=== PATIENT | female | born 1965 | race Caucasian/White ===

== ENCOUNTER → 2016-10-02 | Outpatient (CLI) | payer MEDICARE, MEDICAID ==
[~2016-10-02] MED LIST: DOXY-216 PO; FOLI1TAB6; IBUP800T24; LEVO500T21 PO; METH2.5T3 SC; PRE5T; RIT50I; SACC250C PO
[2016-10-02 09:58] LABS: Basophils # (auto) 0 uL; CONDITION Y; Eosinophils # (auto) 0.1 uL; Eosinophils % (auto) 1.1 % (0.0-7.0); Hematocrit 38.7 % (36.0-46.0); Hemoglobin 12.8 g/dL (12.2-16.2); Lymphocytes # (auto) 0.2 uL; Lymphocytes % (auto) 3.7 % (10.0-50.0); Mean Corpuscular Volume 88.1 fL (80.0-100.0); Mean Platelet Volume 7.9 fL (7.4-10.4); Monocytes # (auto) 0.2 uL; Monocytes % (auto) 4.2 % (0.0-12.0); Neutrophils # (auto) 5.2 uL; Platelet Count (auto) 246 10^3/uL (140-450); Red Cell Distribution Width 18.3 % (11.6-16.0); White Blood Cell 5.7 10^3/uL (4.4-10.8)
[2016-10-02 10:20] LABS: Albumin 3.8 g/dL (3.4-5.0); BUN/Creatinine Ratio 20.5; Bilirubin, Total 0.7 mg/dL (0.2-1.0); Calcium 8.7 mg/dL (8.5-10.1); Potassium 3.7 mmol/L (3.5-5.1); Total Protein 6.7 g/dL (6.4-8.2)
[2016-10-03 05:07] LABS: Rheumatoid Arthritis Factor <10.0 IU/mL (0.0-13.9)
[2016-10-03 10:07] LABS: Hepatitis B Surface Antibody Negative
== END | disposition home or self-care (01) ==
LOC: LAB 09:27
DX: Z12.11 Encounter for screening for malignant neoplasm of colon (principal); D64.9 Anemia, unspecified; M25.50 Pain in unspecified joint; M06.9 Rheumatoid arthritis, unspecified; K75.9 Inflammatory liver disease, unspecified; I10 Essential (primary) hypertension; A15.0 Tuberculosis of lung; Z79.899 Other long term (current) drug therapy
CPT/HCPCS: 36415; 80053; 80074; 85025; 85652; 86141; 86704; 86706

== ENCOUNTER 2017-05-08 08:32 | Inpatient (IN) | payer MEDICARE, MEDICAID ==
[~2017-05-08] VITALS: Ht 177.8 cm; Wt 96.0 kg
[2017-05-08] VITALS (33 sets, daily range): BP systolic 83–149; BP diastolic 43–98
[~2017-05-08 08:32] MED LIST changes: -DOXY-216 PO; -FOLI1TAB6; +FOLI1TAB6 PO; -IBUP800T24; +IBUP800T24 PO; -LEVO500T21 PO; -PRE5T; +PRE5T PO; -RIT50I; -SACC250C PO; +TOCI80IN IV
[2017-05-08] MEDS ORDERED: SODIUM CHLORIDE 0.9% 2,000 ML IV ONE (09:30)
[2017-05-08] MEDS ORDERED: ONDANSETRON HCL 4 MG/2 ML VIAL IV ONE (09:30)
[2017-05-08] MEDS ORDERED: MORPHINE SULFATE 10 MG/ML INJ 1ML SDV IV ONE (09:30)
[2017-05-08 10:00] LABS: Basophils # (auto) 0 uL; Basophils % (auto) 0.3 % (0.0-2.0); Eosinophils # (auto) 0.1 uL; Eosinophils % (auto) 0.9 % (0.0-7.0); Hematocrit 42.3 % (36.0-46.0); Lymphocytes # (auto) 0.4 uL; Lymphocytes % (auto) 6.4 % (10.0-50.0); Mean Corpuscular Hemoglobin 30.3 pg (28.0-32.0); Mean Corpuscular Hgb Conc. 33.1 g/dL (32.0-36.0); Mean Corpuscular Volume 91.6 fL (80.0-100.0); Monocytes # (auto) 0.3 uL; Monocytes % (auto) 4.2 % (0.0-12.0); Neutrophils # (auto) 5.5 uL; Neutrophils % (auto) 88.2 % (37.0-80.0); Nucleated Red Blood Cells % 0.2 %; Platelet Count (auto) 184 10^3/uL (140-450); Red Blood Cells 4.62 10^6/uL (4.0-5.20); Red Cell Distribution Width 15.2 % (11.8-14.3); White Blood Cell 6.2 10^3/uL (4.4-10.8)
[2017-05-08] MEDS ORDERED: MORPHINE SULFATE 4 MG/ML SYR/VIAL IV ONE (10:15)
[2017-05-08 10:20] LABS: INR 1.02 (0.9-1.15); Partial Thromboplastin Time 18.7 sec (22.64-33.71); Prothrombin Time 11.1 sec (9.37-12.3)
[2017-05-08 10:21] LABS: Lactic Acid w/Reflex 2.7 mmol/L (0.4-2.0)
[2017-05-08 10:27] LABS: Albumin 3.1 g/dL (3.4-5.0); BUN/Creatinine Ratio 17.9; Bilirubin, Total 0.9 mg/dL (0.2-1.0); Calcium 8.7 mg/dL (8.5-10.1); Magnesium 1.6 mg/dL (1.6-2.6); Potassium 3.3 mmol/L (3.5-5.1); Total Protein 6.1 g/dL (6.4-8.2)
[2017-05-08] MEDS: SODIUM CHLORIDE 0.9% 1,000 ML IV ONE ×2 (11:30→12:00)
[2017-05-08] MEDS ORDERED: AZITHROMYCIN 500MG/ 250ML 250 ML IV ONE (11:45)
[2017-05-08] MEDS ORDERED: AZTREONAM 1GM INJ 1 GM in D5W 5% 50 ML IV ONE (11:45)
[2017-05-08] MEDS ORDERED: SODIUM CHLORIDE 0.9% 1,000 ML IV ONE ×2 (12:00→13:45)
[2017-05-08] MEDS: MIDAZOLAM DRIP 50 mg/50mL 50 ML IV SCH ×2 (13:05→18:38)
[2017-05-08] MEDS ORDERED: MIDAZOLAM HCL 5 MG/ML-1ML VIAL ONE (13:15)
[2017-05-08] MEDS ORDERED: ETOMIDATE (2MG/ML) 20ML VIAL IV ONE ×2 (13:16→13:30)
[2017-05-08] MEDS ORDERED: KETAMINE HCL 1 ML ONE (13:18)
[2017-05-08] MEDS ORDERED: SUCCINYLCHOLINE CHLORIDE 20 MG/ML 10ML VIAL IV ONE ×2 (13:22→13:30)
[2017-05-08] MEDS: SODIUM CHLORIDE 0.9% 1,000 ML IV SCH ×2 (13:25→18:34)
[2017-05-08] MEDS: NOREPINEPHRINE 8 MG/250ML KIT 250 ML IV SCH (13:30)
[2017-05-08] MEDS ORDERED: MIDAZOLAM HCL 5 MG/ML-1ML VIAL IV ONE ×2 (13:30→13:45)
[2017-05-08] MEDS ORDERED: PIPERACILLIN-TAZOB 3.375GM 50 ML IV ONE (13:45)
[2017-05-08] MEDS ORDERED: ALBUTEROL SULF 2.5 MG/0.5ML(0.5%) NEB SOLN NEB PRN (13:45)
[2017-05-08] MEDS ORDERED: MORPHINE SULFATE 4 MG/ML SYR/VIAL IV PRN ×3 (13:45)
[2017-05-08] MEDS ORDERED: LORazepam 2MG/ML-1ML VIAL IV PRN (13:45)
[2017-05-08] MEDS ORDERED: VANCOMYCIN 1GM/250ML 250 ML IV ONE (13:45)
[2017-05-08] MEDS ORDERED: OSELTAMIVIR 75MG/5ML ORAL SUSP GT ONE (13:45)
[2017-05-08] MEDS ORDERED: PROMETHAZINE HCL 25 MG/ML 1ML IV PRN (13:45)
[2017-05-08] MEDS ORDERED: NITROGLYCERIN 0.4 MG SL TAB SL PRN (13:45)
[2017-05-08] MEDS ORDERED: VANCOMYCIN PER PHARMACY 0 MG IV SCH (13:45)
[2017-05-08] MEDS: fentaNYL Drip 2500mCg/250mlNS 250 ML IV SCH ×2 (14:00→16:11)
[2017-05-08 14:50] LABS: Albumin 3.1 g/dL (3.4-5.0); BUN/Creatinine Ratio 13.1; Bilirubin, Total 0.9 mg/dL (0.2-1.0); Calcium 7.8 mg/dL (8.5-10.1); Potassium 3.5 mmol/L (3.5-5.1); Total Protein 6.4 g/dL (6.4-8.2)
[2017-05-08] MEDS ORDERED: VANCOMYCIN 1,500 MG in D5W 5% 250 ML IV SCH (15:00)
[2017-05-08] MEDS ORDERED: FOLI1TAB6 PO (16:33)
[2017-05-08] MEDS ORDERED: PRE5T GT ×2 (16:35→16:42)
[2017-05-08] MEDS ORDERED: METO25TA5 PO (16:36)
[2017-05-08] MEDS ORDERED: IBUP800T24 PO (16:37)
[2017-05-08] MEDS ORDERED: SACC250C PO (16:42)
[2017-05-08] MEDS: POTASSIUM CHL 20MEQ/100ML 100 ML IV SCH ×2 (17:00→19:00)
[2017-05-08] MEDS ORDERED: POTASSIUM CHL 10% (20 MEQ/15ML) 15ml ORAL SOLN ONE ×2 (17:20→18:40)
[2017-05-08] MEDS: PIPERACILLIN-TAZOB 3.375GM 50 ML IV SCH (18:00)
[2017-05-08] MEDS: ALBUTEROL SULF 2.5 MG/0.5ML(0.5%) NEB SOLN NEB SCH (18:00)
[2017-05-08] MEDS ORDERED: FUROSEMIDE 20 MG/2 ML VIAL ONE (19:02)
[2017-05-08] MEDS ORDERED: FUROSEMIDE 40 MG/4 ML VIAL ONE (19:02)
[2017-05-08] MEDS ORDERED: ALBUMIN 5% 250 ML IV ONE (21:45)
[2017-05-08] MEDS ORDERED: VASOPRESSIN 50 UNITS in D5W 5% 247.5 ML IV SCH (22:00)
[2017-05-08] MEDS ORDERED: OSELTAMIVIR 75MG/5ML ORAL SUSP GT SCH (22:00)
[2017-05-08] MEDS ORDERED: FUROSEMIDE 40 MG/4 ML VIAL IV ONE (22:00)
[2017-05-08] MEDS ORDERED: SODIUM BICARBONATE 8.4 % INJ 50ML VIAL IV ONE ×2 (22:00→22:10)
[2017-05-08] MEDS ORDERED: SODIUM BICARBONATE 8.4 % INJ 50ML VIAL IV SCH (22:00)
[2017-05-08] MEDS ORDERED: ALBUMIN 25% 50 ML IV ONE (22:00)
[2017-05-08] MEDS ORDERED: ALBUMIN 5% 500 ML IV ONE (22:20)
[2017-05-08] MEDS ORDERED: ALBUMIN 25% 100 ML IV ONE (22:21)
[2017-05-08] MEDS ORDERED: VASOPRESSIN 20 UNIT/ML ONE (22:22)
[2017-05-08] MEDS ORDERED: SODIUM BICARBONATE 50ML VIAL 100 ML in D5W/SOD CHL 0.45% 1,000 ML IV SCH (22:30)
[2017-05-09] VITALS (10 sets, daily range): BP systolic 51–153; BP diastolic 25–96
[2017-05-09] MEDS ORDERED: SODIUM BICARBONATE 8.4% INJ 50ML SYRINGE ONE ×2 (01:03→04:41)
[2017-05-09] MEDS ORDERED: SODIUM BICARBONATE 8.4 % INJ 50ML VIAL IV ONE ×3 (01:04→04:30)
[2017-05-09] MEDS: ALBUTEROL SULF 2.5 MG/0.5ML(0.5%) NEB SOLN NEB SCH ×2 (01:12→06:22)
[2017-05-09] MEDS ORDERED: SODIUM BICARBONATE 8.4 % INJ 50ML VIAL IV SCH (01:15)
[2017-05-09 01:18] LABS: Basophils # (auto) 0 uL; Basophils % (auto) 0.2 % (0.0-2.0); Eosinophils # (auto) 0.2 uL; Eosinophils % (auto) 2.5 % (0.0-7.0); Hematocrit 39.9 % (36.0-46.0); Hemoglobin 12.5 g/dL (12.2-16.2); Lymphocytes # (auto) 1.2 uL; Lymphocytes % (auto) 19.5 % (10.0-50.0); Mean Corpuscular Hemoglobin 30.5 pg (28.0-32.0); Mean Corpuscular Hgb Conc. 31.3 g/dL (32.0-36.0); Mean Corpuscular Volume 97.4 fL (80.0-100.0); Monocytes # (auto) 0.1 uL; Monocytes % (auto) 1.6 % (0.0-12.0); Neutrophils # (auto) 4.7 uL; Neutrophils % (auto) 76.2 % (37.0-80.0); Nucleated Red Blood Cells % 0.1 %; Platelet Count (auto) 222 10^3/uL (140-450); White Blood Cell 6.2 10^3/uL (4.4-10.8)
[2017-05-09] MEDS ORDERED: ACETAMINOPHEN 650 mg PER 20 mL UD ONE (01:55)
[2017-05-09 02:09] LABS: Albumin 3.4 g/dL (3.4-5.0); BUN/Creatinine Ratio 9.6; Bilirubin, Total 1.1 mg/dL (0.2-1.0); Potassium 4.6 mmol/L (3.5-5.1); Total Protein 5.8 g/dL (6.4-8.2)
[2017-05-09] MEDS ORDERED: ACETAMINOPHEN 650 mg PER 20 mL UD PO PRN (02:15)
[2017-05-09] MEDS: NOREPINEPHRINE 8 MG/250ML KIT 250 ML IV SCH (04:17)
[2017-05-09] MEDS ORDERED: ALBUMIN 5% 250 ML IV ONE (04:30)
[2017-05-09] MEDS ORDERED: FUROSEMIDE 20 MG/2 ML VIAL IV ONE (04:30)
[2017-05-09] MEDS ORDERED: FUROSEMIDE INJECTION 10 ML ONE (04:41)
[2017-05-09] MEDS: PIPERACILLIN-TAZOB 3.375GM 50 ML IV SCH ×2 (05:06)
[2017-05-09] MEDS: SODIUM CHLORIDE 0.9% 1,000 ML IV SCH (05:10)
[2017-05-09] MEDS: fentaNYL Drip 2500mCg/250mlNS 250 ML IV SCH (06:44)
[2017-05-09] MEDS ORDERED: ACETAMINOPHEN 650 MG RECT SUPP PR ONE (07:45)
[2017-05-09 07:53] LABS: Urine Amorphous Crystal MOD /hpf (None Seen); Urine Bacteria MOD /hpf (None Seen); Urine Blood 2+ /uL (Negative); Urine Mucus FEW (None Seen); Urine Specific Gravity 1.011 (1.001-1.035); Urine WBC 23 /hpf (0 - 5)
[2017-05-09] MEDS ORDERED: ALBUMIN 25% 200 ML IV ONE (08:21)
[2017-05-09] MEDS ORDERED: EPINEPHrine HCL 250 ML IV SCH (08:42)
[2017-05-09] MEDS ORDERED: ALBUMIN 25% 100 ML IV SCH (09:00)
[2017-05-09] MEDS ORDERED: EPINEPHrine HCL 250 ML IV ONE (09:10)
[2017-05-09] MEDS ORDERED: AZITHROMYCIN 500MG/ 250ML 250 ML IV SCH (10:00)
[2017-05-09] MEDS ORDERED: LINEZOLID 600MG/300ML 300 ML IV SCH (10:00)
[2017-05-09] MEDS ORDERED: ENOXAPARIN SOD 40 MG/0.4 ML SYRINGE SC SCH (10:00)
[2017-05-09] MEDS ORDERED: PATIENTS OWN MEDICATION (zyvox 600 MG) IV SCH (10:00)
[2017-05-09] MEDS ORDERED: methylPREDNISolone SOD SUCC 125 MG/2 ML VL ONE (10:07)
[2017-05-09] MEDS ORDERED: HYDROCORTISONE SOD SUCC 100 MG/2ML INJ VIAL ONE (10:09)
[2017-05-09] MEDS ORDERED: HYDROCORTISONE SOD SUCC 100 MG/2ML INJ VIAL IV ONE (10:15)
[2017-05-09] MEDS ORDERED: SODIUM BICARBONATE 50ML VIAL 150 ML in D5W 5% 1,000 ML IV SCH (10:15)
[2017-05-09] MEDS ORDERED: PANTOPRAZOLE 40 MG/10 ML VIAL IV ONE (10:15)
[2017-05-09] MEDS ORDERED: EPINEPHrine HCL 1 MG/10 ML SYRG IV ONE (12:44)
[2017-05-09] MEDS ORDERED: ATROPINE SULF 0.5 MG/5ML SYR IV ONE (12:44)
[2017-05-09] MEDS ORDERED: SODIUM BICARBONATE 8.4% INJ 50ML SYRINGE IV ONE (12:44)
[2017-05-09] MEDS ORDERED: HYDROCORTISONE SOD SUCC 100 MG/2ML INJ VIAL IV SCH (22:00)
[2017-05-10] MEDS ORDERED: PANTOPRAZOLE 40 MG/10 ML VIAL IV SCH (10:00)
[2017-05-15] MEDS ORDERED: KETAMINE HCL 50 MG/ML 10ML VIAL IV ONE (11:00)
== END 2017-05-09 16:05 | disposition expired | DRG 871 ==
LOC: EDBD 08:32 → ER 08:32 → TELE 08:33 → ICU WEST 15:10
PROVIDERS: ADMIT Internal Medicine; ATTEND Internal Medicine
PROC: 5A09357 Assistance with Respiratory Ventilation, Less than 24 Consecutive Hours, Continuous Positive Airway Pressure (ICD-10-PCS; principal; 2017-05-08)
PROC: 5A1935Z Respiratory Ventilation, Less than 24 Consecutive Hours (ICD-10-PCS; 2017-05-08)
PROC: 0BH17EZ Insertion of Endotracheal Airway into Trachea, Via Natural or Artificial Opening (ICD-10-PCS; 2017-05-08)
PROC: 5A12012 Performance of Cardiac Output, Single, Manual (ICD-10-PCS; 2017-05-09)
PROC: 05HN33Z Insertion of Infusion Device into Left Internal Jugular Vein, Percutaneous Approach (ICD-10-PCS; 2017-05-09)
DX: A41.9 Sepsis, unspecified organism (principal); R65.21 Severe sepsis with septic shock; I46.9 Cardiac arrest, cause unspecified; J96.00 Acute respiratory failure, unspecified whether with hypoxia or hypercapnia; N17.0 Acute kidney failure with tubular necrosis; J18.1 Lobar pneumonia, unspecified organism; L97.919 Non-pressure chronic ulcer of unspecified part of right lower leg with unspecified severity; E66.9 Obesity, unspecified; M06.9 Rheumatoid arthritis, unspecified; F41.9 Anxiety disorder, unspecified; E87.6 Hypokalemia; Z68.30 Body mass index [BMI] 30.0-30.9, adult; Z79.899 Other long term (current) drug therapy
CPT/HCPCS: 36415; 36600; 71045; 74176; 76705; 80053; 80061; 81001; 82150; 82805; 83605; 83690; 83735; 83880; 84484; 85025; 85610; 85730; 87040; 87070; 87077; 87081; 87086; 87186; 87205; 87493; 93005; 94002; 94003; 94660; 96365; 96375; 99291; J0171; J0330; J0461; J2250; J2405; J2543; J3490; J7060; P9047